=== PATIENT | male | born 1975 | race Caucasian/White ===

== ENCOUNTER 2021-08-17 10:51 | Outpatient (CLI) | payer BC, SELFPAY ==
--- NOTE | 2021-08-17 10:58 | XR_ITS ---
WS: [id number] XR foot RT min 3V* [id number] REASON FOR EXAM: RIGHT FOOT PAIN FINDINGS: Arthropathy of the right forefoot characterized by mild joint space narrowing, mild subchondral scler osis, and small marginal osteophytes. These findings are most notable in the third and fourth toes. Mild subluxations at the MP joints of the second through the fifth toes with mild varus deformity at the fifth MP joint. No significant bone or joint abnormality in the right midfoot. Normal right subtalar joint. Small enthesophyte at the insertion of the Achilles tendon on the calcaneus. XR/XR foot RT min 3V* [id number] IMPRESSION: Mild osteoarthritis of the right forefoot as above.
== END 2021-08-17 10:52 | disposition home or self-care (01) ==
LOC: RAD 10:55
PROVIDERS: PCP Electrodiagnostic Medicine; Visit Provider Electrodiagnostic Medicine
DX: M19.071 Primary osteoarthritis, right ankle and foot (principal)
CPT/HCPCS: 73630

== ENCOUNTER → 2021-09-23 08:35 | Outpatient (BNVA) | payer BC, SELFPAY | PROVIDERS: PCP Electrodiagnostic Medicine; Referring Provider Electrodiagnostic Medicine; Visit Provider Podiatrist Foot & Ankle Surgery | DX: M79.671 Pain in right foot (principal) | CPT/HCPCS: 73630 ==

== ENCOUNTER → 2022-05-21 11:25 | Day surgery (SDC) | payer BC, SELFPAY ==
[2022-05-21 11:41] LABS: Hematocrit 55.5 % (42.0-52.0); Hemoglobin 19.4 g/dL (11.7-16.6)
[2022-05-21 12:03] VITALS: BP 151/112; PULSE 108; RESP 18; TEMP 36.5; O2SAT 95
== END ==
PROVIDERS: PCP Electrodiagnostic Medicine; Visit Provider Nurse Practitioner
DX: D75.1 Secondary polycythemia (principal)
CPT/HCPCS: 36415; 85014; 85018; 99195

== ENCOUNTER 2022-06-03 07:53 | Outpatient (CLI) | payer BC, SELFPAY ==
--- NOTE | 2022-06-03 08:18 | MR_ITS ---
WS: [id number] MRI CERVICAL SPINE NONCONTRAST TECHNIQUE: Sagittal T1, T2 and STIR imaging. Axial T2, gradient, and fiesta imaging. CLINICAL INFORMATION: ACUTE PAIN OF NECK MUSCLE COMPARISON: None. FINDINGS: Straightening of the normal cervical lordosis. Mild disc bulging C5-C6 and C6-C7. Cord signal is norm al. C2-C3: Normal. C3-C4: Mild facet arthropathy. Spinal canal and foramen are patent. C4-C5: Mild facet arthropathy. Spinal canal and foramen are patent. C5-C6: Mild disc osteophytic ridging. Moderate facet arthropathy. Mild RIGHT greater than LEFT forami nal narrowing. Spinal canal is patent. C6-C7: Mild disc osteophyte complex with endplate ridging. Mild central canal stenosis. Slight contac t of the cervical cord. Mild to moderate bilateral bony foraminal narrowing. Moderate facet arthropat hy. C7-T1: Mild osteophytic ridging. Mild LEFT and no significant RIGHT bony foraminal narrowing. Spinal canal is patent Visualized brain stem structures: Normal. Prevertebral soft tissues: Normal. MR/MR cervical spin wo con* [id number] IMPRESSION: 1. Straightening of the normal cervical lordosis. Cord signal is normal. 2. Disc osteophyte complex with endplate ridging and shallow central protrusio n C6-C7. Mild central canal stenosis with slight contact of the cervical cord. Mild to moderate bilateral bony foraminal narrowing at this level. Moderate fac et arthropathy. 3. Mild disc osteophytic ridging C5-C6 with mild RIGHT foraminal narrowing. Mo derate facet arthropathy at this level. 4. No other significant findings.
== END 2022-06-03 07:54 | disposition home or self-care (01) ==
PROVIDERS: PCP Electrodiagnostic Medicine; Visit Provider Nurse Practitioner
DX: M25.78 Osteophyte, vertebrae (principal); M48.02 Spinal stenosis, cervical region
CPT/HCPCS: 72141

== ENCOUNTER → 2022-06-22 08:37 | Day surgery (SDC) | payer BC, SELFPAY ==
[2022-06-22 09:00] VITALS: BP 152/117; PULSE 90; RESP 18; TEMP 36.5; O2SAT 90
[2022-06-22 09:00] LABS: Hematocrit 56.8 % (42.0-52.0); Hemoglobin 19.7 g/dL (11.7-16.6)
== END ==
PROVIDERS: PCP Electrodiagnostic Medicine; Visit Provider Obstetrics & Gynecology Gynecology
DX: D75.1 Secondary polycythemia (principal)
CPT/HCPCS: 36415; 85014; 85018; 99195

== ENCOUNTER 2022-09-11 08:31 | Outpatient (CLI) | payer BC, SELFPAY ==
--- NOTE | 2022-09-11 | USR_ITS ---
Arterial ultrasound of the extracerebral carotid and vertebral arteries Clinical indication: Numbness / parasthesia; Right; Additional info: C-spine spondylosis Technique: Real-time ultrasound with alexandre scale, duplex Doppler, and color flow imaging was performed to evaluate the extracerebral carotid and vertebral arteries. No prior vascular imaging studies are available for correlation at the time of dictation. Findings: No significant plaque formation is identified in the carotid arteries Antegrade flow in the right vertebral artery with limited evaluation of left vertebral arterial flow. The peak systolic velocity measurements within the right and left internal carotid arteries are 71 and eighty-one cm per second respectively. The right systolic velocity ratio is 0.74, while the left systolic velocity ratio is 0.74. These values are well within normal limits. US/CV carotid duplex BI* [id number] Impression: 1. Unremarkable sonographic evaluation of the carotid arteries. 2. Antegrade flow in the right vertebral artery with limited evaluation of left vertebral arterial flow.
== END 2022-09-11 08:32 | disposition home or self-care (01) ==
PROVIDERS: PCP Electrodiagnostic Medicine; Visit Provider Neurological Surgery
DX: M47.22 Other spondylosis with radiculopathy, cervical region (principal); R20.2 Paresthesia of skin
CPT/HCPCS: 93880

== ENCOUNTER 2022-10-19 16:09 | Outpatient (CLI) | payer BC, SELFPAY ==
--- NOTE | 2022-10-19 16:23 | CT_ITS ---
WS: [id number] CTA HEAD AND NECK TECHNIQUE: Contrast enhanced CTA of the head and neck with coronal and sagittal reformatted images an d maximum intensity projection (MIP) images. NASCET criteria utilized. CLINICAL INFORMATION: PARESTHESIA OF SKIN, HYPERTENSION COMPARISON: Ultrasound September 11, 2022 DLP: 1467.[address] scans at [facility] use at least one of these dose optimization techniques: automated e xposure control; mA and/or kV adjustment per patient size (includes targeted exams where dose is matc hed to clinical indication); or iterative reconstruction. FINDINGS: No evidence of intracranial hemorrhage or mass effect. Ventricular system and basal cistern s are patent. Chronic lacunar infarcts LEFT cerebellum. Normal alexandre-white differentiation. Mastoid air cells are well aerated. Retention cyst RIGHT maxillary sinus measuring 2.1 CM. Normal pos terior nasopharynx. Normal parapharyngeal fat. Lung apices are well aerated. RIGHT thyroid nodule lawson suring 10 mm. Normal parotid glands. Submandibular glands are normal. No evidence of supraglottic or glottic mass. Normal posterior nasopharynx. Normal parapharyngeal fat. RIGHT: RIGHT common carotid artery is patent. No significant RIGHT ICA stenosis. RIGHT ICA is patent to the skull base. LEFT: LEFT common carotid artery is patent. No significant LEFT ICA stenosis. LEFT ICA is patent to the skull base. INTRACRANIAL CTA: RIGHT dominant vertebral artery. Basilar artery is patent. Smaller but patent LEFT vertebral artery. LEFT vertebral artery mainly ends in PICA. Proximal basilar artery is patent. Normal vascularity to the LEAD [employer]EL[employer] territory bilaterally. Both ICAs are patent at the skull base. Normal vascularity to the VIPIN and MCA territories bilaterally . No evidence of proximal flow limiting stenosis. CT/CT angio headneck* [id number] IMPRESSION: 1. No significant ICA stenosis bilaterally. Both ICAs are patent to the skull base. 2. RIGHT dominant vertebral artery. Smaller but patent LEFT vertebral artery w hich mainly ends in PICA. 3. Normal intracranial CTA. No flow-limiting stenosis. 4. Low-attenuation RIGHT thyroid nodule measures 10 mm.
[2022-10-19] MEDS: iohexol 350 mg/mL 100 mL Btl IV (17:06)
== END 2022-10-19 16:10 | disposition home or self-care (01) ==
PROVIDERS: PCP Electrodiagnostic Medicine; Visit Provider Psychiatry & Neurology Epilepsy
DX: R20.2 Paresthesia of skin (principal); I10 Essential (primary) hypertension; E04.1 Nontoxic single thyroid nodule
CPT/HCPCS: 70496; 70498; Q9967

== ENCOUNTER 2022-12-02 14:08 | Outpatient (CLI) | payer BC, SELFPAY ==
--- NOTE | 2022-12-02 | US_ITS ---
WS: [id number] THYROID ULTRASOUND HISTORY: NODULES COMPARISON: CTA neck 10/19/2022 Right lobe: 1.6 cm x 2.2 cm x 5.6 cm (w x ap x l). Volume: 10.4 cm3. Mildly enlarged thyroid lobe. Mild coarsened echotexture throughout. Hypoechoic ovoid nodule in the i nferior pole measures 10 x 11 x 6 mm. No echogenic foci. Mild peripheral increased vascularity. Left lobe: 1.4 cm x 2.1 cm x 4.4 cm (w x ap x l). Volume: 6.7 cm3. Normal size gland with mild coarse echotexture. No mass or nodules. Isthmus: 0.4 cm. US/US thyroid [id number] IMPRESSION: 1. Hypoechoic nodule lower pole RIGHT thyroid (TI-RADS 3). Follow-up recommend ation is ultrasound at 1, 3 and 5 years to document stability. 2. Mild RIGHT lobe enlargement.
== END 2022-12-02 14:09 | disposition home or self-care (01) ==
PROVIDERS: PCP Electrodiagnostic Medicine; Visit Provider Electrodiagnostic Medicine
DX: E04.1 Nontoxic single thyroid nodule (principal); E04.9 Nontoxic goiter, unspecified
CPT/HCPCS: 76536

== ENCOUNTER 2023-01-04 15:00 | Outpatient (CLI) | payer BC, SELFPAY | END 2023-01-04 15:01 | disposition home or self-care (01) | LOC: SLEEP 01-05 12:41 | PROVIDERS: PCP Electrodiagnostic Medicine; Visit Provider Electrodiagnostic Medicine | DX: G47.33 Obstructive sleep apnea (adult) (pediatric) (principal) | CPT/HCPCS: G0399 ==

== ENCOUNTER 2023-03-24 08:49 | Outpatient (CLI) | payer BC, SELFPAY ==
--- NOTE | 2023-03-24 08:57 | USCV_ITS ---
Edilson Franklin Age: 47 Gender: M : 1975 Exam Date: 03/24/2023 09:05 Ordering Phys: Lionel Green DO Technologist: Exam Location: [facility] [place]_ Indication: leg numbness RIGHT LEFT Brachial 127.00 mmHg Brachial 134.00 mmHg Pressure (mmHg) Waveform Pressure (mmHg) Waveform 147.00 CLOTH SHRINKING TESTER 153.00 128.00 DPA 135.00 1.10 Ankle/Brachial Index 1.10 1.10 Post-Exercise Ankle Brachial Index 1.10 129.00 Pre-Exercise Toe Pressure 156.00 0.96 Pre-Exercise Toe/Brachial Index 1.10 FINDINGS Resting CARY of 1.1 bilaterally Resting TBI 0.96 on the right and 1.1 on the left CONCLUSIONS Normal resting ABIs and TBIs bilaterally No evidence of any significant arterial obstruction, based on the above findings. Dr Afshan Chatman MD [facility] (Electronically Signed) Final Date: 25 Mar 2023 17:02 S
== END 2023-03-24 08:50 | disposition home or self-care (01) ==
LOC: RAD 08:52
PROVIDERS: PCP Electrodiagnostic Medicine; Visit Provider Electrodiagnostic Medicine
DX: I73.9 Peripheral vascular disease, unspecified (principal)
CPT/HCPCS: 93922

== ENCOUNTER 2023-04-29 08:10 | Outpatient (CLI) | payer BC, SELFPAY ==
--- NOTE | 2023-04-29 08:27 | MR_ITS ---
WS: [id number] MRI LUMBAR SPINE NONCONTRAST HISTORY: RADICULITIS DUE TO DISPLACEMENT OF LUMBAR INTERVERTEBRAL DIS COMPARISON: None available. TECHNIQUE: Sagittal and axial multisequence imaging is submitted. 5 nonrib-bearing vertebral bodies are identified. The S1 vertebral body is lumbarized. This will be t he numbering pattern utilized. Normal lumbar alignment with no compression fractures or marrow edema. Mild disc desiccation at L4-5 and L5-S1. No fractures or marrow edema. Conus terminates normally at L1-2 disc level. L1-L2: Normal. L2-L3: Normal. L3-L4: Mild annular disc bulging and facet arthropathy. There is very mild encroachment upon the suba rticular recesses and the traversing L4 nerve roots. Mild central and bilateral subarticular recess s tenosis. L4-L5: Mild diffuse annular disc bulging with a central disc protrusion and annular fissure. Mild dis c encroachment into the subarticular recesses. Mild osteophytic ridging. There is moderate disc osteo phyte complex extending into the RIGHT subarticular recess. More significant encroachment upon the tr aversing L5 nerve root. Mild central, bilateral subarticular recess and foraminal narrowing. Moderate bilateral facet arthritis. L5-S1: Annular disc bulge with a central disc protrusion and annular fissure. Disc encroachment into the subarticular recesses. Moderate central and bilateral subarticular recess stenosis. There is cont act on the S1 nerve roots bilaterally. No significant foraminal stenosis. More advanced LEFT facet ar thritis. S1-S2: Small rudimentary disc. No stenosis. Paravertebral soft tissues are normal. MR/MR lumbar spine wo con* [id number] IMPRESSION: 1. S1 is lumbarized. 2. L5-S1: Central disc protrusion. Moderate central and bilateral subarticular recess stenosis. There is disc encroachment upon the S1 nerve roots bilaterall y. 3. L4-5: Mild central, bilateral subarticular recess and foraminal stenosis. T here is a more focal disc osteophyte complex extending into the RIGHT subarticu lar recess. Most significant encroachment upon the traversing RIGHT L5 nerve ro ot. 4. Facet joint arthritis most significant at L4-5 and L5-S1. 5. Mild central and bilateral subarticular recess stenosis at L3-4.
--- NOTE | 2023-04-29 08:45 | MR_ITS ---
WS: [id number] MRI BRAIN WITH AND WITHOUT CONTRAST HISTORY: headache, history of meningioma COMPARISON: 10/05/2022 TECHNIQUE: Multiplanar imaging performed through the brain with MultiHance 20 ml's IV. No acute infarcts are seen. Price-white matter differentiation is well preserved. No susceptibility artifacts or prior lacunar infarcts. Ventricles and extra-axial spaces are normal. Clivus and pituitary gland are normal. Visualized posterior fossa and brainstem are also normal. Intermediate enhancing extra-axial mass is noted along the RIGHT clivus and petrous ridge measuring 1 2 x 6 x 13 mm. This mass was also present on the study from 10/05/2022 without increase in size. No s ignificant mass effect upon the brain. There is a small dural tail. This is most significant with a m eningioma. Dural venous sinuses are normal. Paranasal sinuses: Mucoperiosteal thickening and a small mucous retention cyst in the RIGHT maxillary sinus. No air-fluid levels. Mastoid air cells: Normal. Calvarium and scalp: Normal. MR/MR head wo/w con [id number] IMPRESSION: 1. Stable extra-axial mass along the RIGHT petrous ridge/clivus. Most consiste nt with a meningioma measuring 12 x 6 x 13 mm. Very similar in size and appeara nce as compared to 10/05/2022. 2. No prior infarct or hemorrhage. 3. Normal size ventricles. 4. No atrophy.
[2023-04-29] MEDS: gadobenate dimeglumine 20 mL vial IV (11:39)
== END 2023-04-29 08:11 | disposition home or self-care (01) ==
PROVIDERS: PCP Electrodiagnostic Medicine; Visit Provider Specialist
DX: M51.16 Intervertebral disc disorders with radiculopathy, lumbar region (principal); D32.0 Benign neoplasm of cerebral meninges; M47.27 Other spondylosis with radiculopathy, lumbosacral region; M48.07 Spinal stenosis, lumbosacral region; M25.78 Osteophyte, vertebrae
CPT/HCPCS: 70553; 72148; A9577

== ENCOUNTER → 2023-06-14 14:08 | Outpatient (BNVA) | payer BC, SELFPAY | PROVIDERS: PCP Electrodiagnostic Medicine; Visit Provider Orthopaedic Surgery | DX: M48.062 Spinal stenosis, lumbar region with neurogenic claudication (principal) | CPT/HCPCS: 72110 ==

== ENCOUNTER 2023-07-29 08:36 | Day surgery (SDC) | payer BC, SELFPAY ==
[2023-07-13 13:18] LABS: Add Urine Microscopic? NO; Charge for UA Resulting for Rev
[2023-07-13 13:23] LABS: Bilirubin Urine Neg (Negative); Blood Urine Neg (Negative); Glucose Urine UA Norm (Normal); Ketones Urine Negative (Negative); Leukocyte Esterase Urine Negative (Negative); Nitrate Urine Negative (Negative); Protein Urine Neg (Negative); Specific Gravity, Urine 1.005 (1.005-1.030); Urine Appearance Clear (CLEAR); Urine Color Yellow (Yellow); Urobilinogen Urine 1 mg/dL (Negative); pH Urine 7 (5-7)
[2023-07-13 13:23] LABS: Basophils % 0.6 %; Eosinophils # 0.1 10^3/uL (0.0-0.8); Eosinophils % 1.2 %; Hematocrit 50.9 % (37-53); Lymphocytes # 2.4 10^3/uL (0.8-4.8); Lymphocytes % 36.6 %; Mean Corpuscular HGB Conc 35.2 g/dL (30-55); Mean Corpuscular Hemoglobin 32.7 pg (27-33); Mean Corpuscular Volume 92.9 fl (82-101); Mean Platelet Volume 9.6 fL (7.4-10.4); Monocytes # 0.5 10^3/uL (0.2-0.9); Monocytes % 8.1 %; Neutrophils # 3.44 10^3/uL (1.8-7.7); Neutrophils % 53.3 %; Nucleated Red Blood Cells % 0 %; Platelet Count 218 10^3/cmm (157-399); Red Blood Count 5.48 10^6/uL (3.85-5.65); Red Cell Distribution Width 12.3 % (12.1-15.1); White Blood Count 6.45 10^3/uL (3.29-11.43)
[2023-07-13 13:49] LABS: Alanine Aminotransferase 75 U/L (0-41); Albumin Level 4.9 g/dL (3.5-5.2); Alkaline Phosphatase 48 U/L (40-130); Anion Gap 11.3 (5-19); Aspartate Amino Transferase 32 U/L (0-40); Blood Urea Nitrogen 17 mg/dL (6-20); Calcium 9.3 mg/dL (8.5-10.5); Carbon Dioxide 30 mmol/L (22-29); Chloride 103 mmol/L (98-107); Globulin 1.9 g/dL (1.3-4.6); Glomerular Filtration Rate 89.7 mL/min (90-130); Glucose 88 mg/dL (65-115); Osmolality Calculated 291 mOsm/kg (285-295); Potassium 4.3 mmol/L (3.5-5.1); Sodium 140 mmol/L (136-145); Total Bilirubin 0.5 mg/dL (0.15-1.2); Total Protein 6.8 g/dL (6.6-8.7)
[2023-07-28 11:47] VITALS: BMI 33.7
[2023-07-29] VITALS (9 sets, daily range): BP systolic 123–144; BP diastolic 76–92; PULSE 68–83; RESP 14–18; TEMP 36.2–36.8; O2SAT 94–98
--- NOTE | 2023-07-29 | XR_ITS ---
WS: [id number] XR lumbar spine 1V [id number] REASON FOR EXAM: l5-S1 decompression. or pic FINDINGS: Surgical device overlying the L5 vertebral body just right of midline. IMPRESSION: Intraoperative lumbar localization as above.
--- NOTE | 2023-07-29 08:46 | W.PM.OPSFHP ---
Same Day Surgery H&P Indication for Procedure/HPI DATE OF PROCEDURE: July 29, 2023 CHIEF COMPLAINT/INDICATIONFOR SURGICAL PROCEDURE: back pain PREOP DIAGNOSIS: Lumbar Stenosis with neurogenic claudication PLANNED PROCEDURE: Operation Date: 07/29/23 09:55 Proposed Procedures p 59110: right L5/6 mm decompression, M48.062: Lumbar stenosis with neurogenic claudication M54.9: back pain(Right) - Chacho Abad, Medications/Allergies* Home Medications Medication Instructions Recorded Confirmed Type pantoprazole 40 mg granules 40 mg PO DAILY 09/23/21 07/28/23 History delayed-release for susp in packet Tumeric 2,000 mg PO DAILY 01/31/23 07/28/23 History gabapentin 300 mg capsule 300 mg PO DAILY 01/31/23 07/28/23 History hydrochlorothiazide 12.5 mg capsule 12.5 mg PO DAILY 01/31/23 07/28/23 History testosterone cypionate 200 mg/mL 100 mg SUBCUT 01/31/23 06/14/23 History intramuscular oil valsartan 320 mg tablet 320 mg PO DAILY 06/14/23 07/28/23 History Allergies/Adverse Reactions Allergy/AdvReac Type Severity Reaction Status Date / Time amoxicillin Allergy Mild Rash Verified 07/28/23 11:44 Pertinent History/Comorbid Conditions* Social History Smoking and tobacco status: never smoked Second hand smoke exposure: No Smoking risk assessment/counseling performed?: No Alcohol intake: current Alcohol intake frequency: few times a week Alcohol type: beer Desire information about alcohol rehabilitation?: No Counseling given: No Substance/Drug Use: never Desire information about substance/drug rehabilitation?: No Counseling given: No Pertinent Exam Findings alert and oriented x 3 Recommendations Surgery/Procedure today Coding Level of Care Code Acute Code for Chg Fwd Diagnoses
[2023-07-29] MEDS: sodium chloride 0.9% 1,000 ML 30 ML IV (09:00)
[2023-07-29] MEDS: vancomycin 1,000 MG in sodium chloride 0.9% 250 ML 250 MG IV (09:42)
--- NOTE | 2023-07-29 09:55 | ANES.PREANE2 ---
Pre-Anesthetic Assessment Height/Weight: Height 1.91 m Weight 122.47 kg Temp Pulse Resp BP Pulse Ox O2 Del Method 98.2 F 80 18 144/92 96 Room Air 07/29/23 08:51 07/29/23 08:51 07/29/23 08:51 07/29/23 08:51 07/29/23 08:51 07/29/23 08:52 Preop Diagnosis: Lumbar Stenosis with neurogenic claudication Operation Date: 07/29/23 09:55 Proposed Procedures p 17427: right L5/6 mm decompression, M48.062: Lumbar stenosis with neurogenic claudication M54.9: back pain(Right) - Chacho Abad, DO Was Beta Malinda taken within 24 hours: N/A Was Clonidine taken within 24 hours: N/A Last intake: Intake Last Liquid Date 07/28/23 Last Liquid Time 22:00 Last Solid Date 07/28/23 Last Solid Time 19:00 Social No tobacco Exam alert, oriented x 3, clear to auscultation bilaterally and regular rate & rhythm Airway Submandibular: within normal limits Cervical ROM: within normal limits Mallampati: Class II History/ROS No significant history except as noted and No significant complaints CV/HEM Hypertension GI Gastroesophageal Reflux Disease Anesthetic Plan ASA status: 2 Anesthesia: General Risk of > 500 ml blood loss (7ml/kg in children): No Medications/Allergies Home Medications Medication Instructions Recorded Confirmed Last Taken Type pantoprazole 40 mg granules 40 mg PO DAILY 09/23/21 07/28/23 07/28/23 History delayed-release for susp in packet Tumeric 2,000 mg PO DAILY 01/31/23 07/28/23 07/28/23 History gabapentin 300 mg capsule 300 mg PO DAILY 01/31/23 07/28/23 07/28/23 History hydrochlorothiazide 12.5 mg capsule 12.5 mg PO DAILY 01/31/23 07/28/23 07/28/23 History testosterone cypionate 200 mg/mL 100 mg SUBCUT 01/31/23 06/14/23 Unknown History intramuscular oil valsartan 320 mg tablet 320 mg PO DAILY 06/14/23 07/28/23 07/28/23 History Allergies Allergy/AdvReac Type Severity Reaction Status Date / Time amoxicillin Allergy Mild Rash Verified 07/28/23 11:44 PFS Anesthesia Social History Smoking and tobacco status: never smoked Second hand smoke exposure: No Smoking risk assessment/counseling performed?: No Alcohol intake: current Alcohol intake frequency: few times a week Alcohol type: beer Desire information about alcohol rehabilitation?: No Counseling given: No Substance/Drug Use: never Desire information about substance/drug rehabilitation?: No Counseling given: No Data Anesthesia 07/13/23 13:13 07/13/23 13:13 Cardiac Studies: No Data to Display
[2023-07-29] MEDS: lidocaine-epi 1% 20 mL INJ INJECTION (10:17)
--- NOTE | 2023-07-29 10:55 | PM.OP ---
Operative Report Date of procedure: July 29, 2023 Pre-op diagnosis: Lumbar stenosis with neurogenic claudication Post-op diagnosis: same Procedure done: L4-5 laminectomy with partial facetectomy Surgeon: Chacho Abad DO Hydroelectric Plant Electrician: Mazin Otero Hydroelectric Plant Electrician: The surgical services tech, Mazin Otero, DAMIEN was needed for his expertise under the microscope. He was important and necessary throughout the procedure to complete in a safe and timely manner. He assisted with patient positioning prepping and draping tissue retraction suctioning of the operative field protection of the dural sac and tissue closure Estimated blood loss (mL): 15 Procedure: L4-5 laminectomy with partial facetectomy Patient is brought to the operative suite. After undergoing anesthesia they are placed in the prone position. All areas of impingement are well padded. Patient is then prepped and draped in the normal sterile fashion. A skin incision is made over the L4-5 level. This is confirmed under c-arm guidance. A series of dilators are passed and the tubular retractor is docked on the L4 lamina. A bovie is used to clear the soft tissue off the lamina and the L 4/5 facet joint. A high speed gila is then used to perform the laminectomy and take down the medial aspect of the L 4/5 facet joint. A kerrison rongeure was then used to take down the remaining lamina and smooth the edge of the laminectomy up to the point where the ligamentum flavum attaches. Attention was then brought to the medial aspect of the facet joint. The remaining medial aspect of the superior and inferior aspect of the facet joint were taken down with the kerrison from the pedicle of L4 to L 5. The facet joint had significant hypertrophy. Attention was then brought to the Ligamentum Flavum. The ligament was taken down from the lamina of L4 to L5 and out medially to the remaining facet joint. The ligament was thick. The dura was then exposed. The dura was in good repair. The L4 nerve was then traced with a curette out the L4/5 foramen and found to be adequately decompressed. The L5 nerve was traced with a curette around the L5 pedicle. The lateral recess was opened with a kerrison helping to further decompress the L5 nerve. Wound is then irrigated copiously with saline and surgiflo is used to stop any bleeding. The tubular retractor is removed and the wound is closed with vicryl and monocryl suture. Glue is then used to protect the wound. A sterile dressing is then placed. Patient was then placed in the supine position and transferred to the PACU in stable condition.
[2023-07-29] MEDS: oxyCODONE-APAP 5-325 mg Tablet 1 TAB PO (11:54)
--- NOTE | 2023-07-29 13:47 | ANE.PACU2 ---
Inpatient post-anesthesia follow up: Airway intact: Yes Vital signs: Temperature 97.2 F Pulse Rate 68 Respiratory Rate 17 Blood Pressure 135/88 Pulse Oximetry 94 Oxygen Delivery Me thod Room Air Oxygen Flow Rate 6 Fraction of Inspir ed Oxygen Hydration adequate: Yes Nausea and vomiting: No Pain level: 3 Mental status: Baseline
== END 2023-07-29 12:09 | disposition home or self-care (01) ==
PROVIDERS: PCP Electrodiagnostic Medicine; Visit Provider Orthopaedic Surgery
PROC: (CPT 63005; principal; 2023-07-29 09:55)
DX: M48.062 Spinal stenosis, lumbar region with neurogenic claudication (principal); I10 Essential (primary) hypertension; K21.9 Gastro-esophageal reflux disease without esophagitis
CPT/HCPCS: 63047; 36415; 72020; 76000; 80053; 81003; 85025; J0131; J1100; J1885; J2250; J2405; J2704; J2710; J3010; J3370; J3490; J7030; J7050

== ENCOUNTER → 2023-09-15 09:40 | Outpatient (BNVA) | payer BC, SELFPAY | PROVIDERS: PCP Electrodiagnostic Medicine; Visit Provider Podiatrist Foot & Ankle Surgery | DX: M76.61 Achilles tendinitis, right leg; M76.62 Achilles tendinitis, left leg | CPT/HCPCS: 73610 ==

== ENCOUNTER 2023-10-17 07:19 | Outpatient (RCR) | payer BC, SELFPAY | END 2023-11-06 23:59 | disposition home or self-care (01) | LOC: SPT 07:19 | PROVIDERS: PCP Electrodiagnostic Medicine; Visit Provider Podiatrist Foot & Ankle Surgery | DX: M76.61 Achilles tendinitis, right leg (principal) | CPT/HCPCS: 97033; 97110; 97140; 97161 ==

== ENCOUNTER 2023-10-28 12:44 | Outpatient (CLI) | payer BC, SELFPAY ==
--- NOTE | 2023-10-28 16:45 | MR_ITS ---
WS: [id number] MRI LUMBAR SPINE NONCONTRAST HISTORY: lumbar pain, recent lumbar spine surgery. COMPARISON: 04/29/2023 TECHNIQUE: Sagittal and axial multisequence imaging is submitted. Same numbering pattern will be utilized. S1 is lumbarized. Posterior alignment is normal. Mild disc space narrowing and desiccation at L4-5 and L5-S1. No fractures or marrow edema. Postsurgic al changes are noted at the L5-S1 level. Conus terminates normally at L1-2 disc level. L1-L2: Normal. L2-L3: Normal. L3-L4: Mild annular disc bulging with ligamentum flavum and facet arthritis. Mild encroachment upon t he traversing L4 nerve roots. No high-grade stenosis. L4-L5: Mild annular disc bulging with a central disc protrusion. Ligamentum flavum and facet arthriti s. Small amount of fluid in the facet joints. There is disc encroaching and contacting the traversing L5 nerve roots. Mild central and bilateral subarticular recess and foraminal stenosis. Very similar to the prior study. Slightly greater RIGHT foraminal stenosis. L5-S1: Mild annular disc bulging with a central disc protrusion and annular fissure. LEFT hemilaminec kathryn defect. Continued mild central stenosis and facet arthritis. S1-S2: Small rudimentary disc. No stenosis. IMPRESSION: 1. Since the prior examination status post LEFT hemilaminectomy defect at L5-S1. There is a continued central disc protrusion at L5-S1 with mild encroachment upon the subarticular recesses and central c anal. 2. L4-5: Mild central, bilateral subarticular recess and foraminal stenosis. Similar to the prior elisabeth dy.
== END 2023-10-28 12:45 | disposition home or self-care (01) ==
LOC: RAD 12:44
PROVIDERS: PCP Electrodiagnostic Medicine; Visit Provider Physician Assistant
DX: Z98.890 Other specified postprocedural states (principal); M48.061 Spinal stenosis, lumbar region without neurogenic claudication
CPT/HCPCS: 72148

== ENCOUNTER 2023-11-07 06:00 | Outpatient (RCR) | payer BC, SELFPAY | END 2023-11-17 23:59 | disposition home or self-care (01) | LOC: SPT 06:00 | PROVIDERS: PCP Electrodiagnostic Medicine; Visit Provider Podiatrist Foot & Ankle Surgery | DX: M76.61 Achilles tendinitis, right leg (principal) | CPT/HCPCS: 97033; 97110; 97140 ==

== ENCOUNTER 2023-11-23 11:50 | Outpatient (CLI) | payer BC, SELFPAY ==
--- NOTE | 2023-11-23 12:01 | USCV_ITS ---
Franklin Waggoner Age: 48 Gender: M : 1975 Exam Date: 11/23/2023 12:21 Ordering Phys: Lionel Green DO Technologist: EDDIE Exam Location: [facility] [place]_ Indication: CHEST PAIN BP: 130 / 75 HR: 65 Rhythm: Sinus Technical Quality: Adequate MEASUREMENTS (Male / Female) Normal Values 2D ECHO LVOT Diameter 2.1 cm LV Ejection Fraction MOD 2C 54.7 % LV Ejection Fraction 2C AL 58.2 % LA Diameter 3.8 cm LA Width 3.6 cm LA Height 5.6 cm RA Width 3.6 cm RA Height 5.1 cm Aorta at Sinotubular Diameter 2.5 cm IVC Diameter 2.0 cm M-MODE Aortic Annulus Diameter 3.1 cm LA Ao Ratio MM 1.3 MV E Point Septal Separation 0.4 cm DOPPLER AV Peak Velocity 150.0 cm/s LVOT Peak Velocity 125.0 cm/s AV Area Cont Eq vti 3.5 cm squared AV Area Cont Eq pk 2.9 cm squared MV Peak Velocity 78.0 cm/s MV Area PHT 4.0 cm squared Mitral E to A Ratio 1.2 MV E' Velocity 41.5 cm/s Mitral E to MV E' Ratio 7.4 Mitral E to LV E' Lateral Ratio 6.4 Mitral E to LV E' Septal Ratio 8.8 TR Peak Velocity 220.3 cm/s TR Peak Gradient 19.4 mmHg TR Mean Velocity 190.5 cm/s TR Mean Gradient 15.0 mmHg TR Velocity Time Integral 65.9 cm TV Peak E Velocity 38.0 cm/s Right Atrial Pressure 3.0 mmHg Pulmonary Artery Systolic Pressu 22.4 mmHg PV Peak Velocity 101.0 cm/s RV Acceleration Time 0.1 s RV Ejection Time 0.3 s RV AcT/ET 0.5 FINDINGS Left Ventricle Left ventricle is normal in size. LV systolic function is normal with EF of 55 to 60%. No regional wall motion abnormalities are seen. Right Ventricle Normal in size and function Right Atrium Normal in size Left Atrium Normal in size Mitral Valve Structurally normal mitral valve. Mild mitral regurgitation Aortic Valve Structurally normal aortic valve. No comparison studies are available. Tricuspid Valve Mild tricuspid regurgitation. Pulmonary artery systolic pressure is normal. Pulmonic Valve Not well-visualized Pericardium Trace pericardial effusion. Aorta Normal in size IVC Appears to be normal CONCLUSIONS LV systolic function is normal with EF of 55 to 60%. Mild mitral regurgitation Mild tricuspid regurgitation Trace pericardial effusion. No comparison studies are available. Anirudh Bravo MD (Electronically Signed) Final Date: 09 December 2023 14:53 S
== END 2023-11-23 11:51 | disposition home or self-care (01) ==
LOC: RAD 11:54
PROVIDERS: PCP Electrodiagnostic Medicine; Visit Provider Electrodiagnostic Medicine
DX: R07.9 Chest pain, unspecified (principal); I08.1 Rheumatic disorders of both mitral and tricuspid valves
CPT/HCPCS: 93306

== ENCOUNTER 2025-01-15 05:48 | Outpatient (CLI) | payer SELFPAY ==
[2025-01-15 07:29] LABS: HF Add Manual Diff No
[2025-01-15 07:49] LABS: Basophils % 0.6 %; Eosinophils # 0.1 10^3/uL (0.0-0.8); Eosinophils % 1.4 %; Hematocrit 47.3 % (37-53); Lymphocytes # 2.8 10^3/uL (0.8-4.8); Lymphocytes % 44.3 %; Mean Corpuscular HGB Conc 33.6 g/dL (30-55); Mean Corpuscular Hemoglobin 30.9 pg (27-33); Mean Platelet Volume 10.1 fL (7.4-10.4); Monocytes # 0.6 10^3/uL (0.2-0.9); Monocytes % 8.9 %; Neutrophils # 2.79 10^3/uL (1.8-7.7); Neutrophils % 44.5 %; Nucleated Red Blood Cells % 0 %; Platelet Count 208 10^3/cmm (157-399); Red Blood Count 5.14 10^6/uL (3.85-5.65); Red Cell Distribution Width 13.1 % (12.1-15.1); White Blood Count 6.28 10^3/uL (3.29-11.43)
[2025-01-15 08:12] LABS: Estmated Average Glucose 103; Hemoglobin A1C 5.2 % (4.0-6.0)
[2025-01-15 08:33] LABS: 25 Hydroxy Vitamin D 46 ng/mL (30-100); Alanine Aminotransferase 34 U/L (0-41); Albumin Level 4.3 g/dL (3.5-5.2); Alkaline Phosphatase 60 U/L (40-130); Blood Urea Nitrogen 20 mg/dL (6-20); Carbon Dioxide 24 mmol/L (22-29); Chloride 106 mmol/L (98-107); Chol HDL Ratio 4.55 mg/dL (1.0-5.00); Cholesterol 191 mg/dL (0-200); Globulin 1.9 g/dL (1.3-4.6); Glucose 98 mg/dL (65-115); HDL Cholesterol 42 mg/dL (60-100); LDL Cholesterol Calculated 123 mg/dL (50-129); LDL HDL Ratio 2.93 RATIO (0.00-3.22); Osmolality Calculated 295 mOsm/kg (285-295); Prostate Specific Antigen Scr 2.02 ng/mL (0-4); Sodium 141 mmol/L (136-145); Thyroid Stimulating Hormone 3.07 uIU/mL (0.27-4.20); Total Bilirubin 0.5 mg/dL (0.15-1.2); Total Protein 6.2 g/dL (6.6-8.7); Triglycerides 132 mg/dL (0-150)
[2025-01-15 08:41] LABS: Aspartate Amino Transferase 25 U/L (0-40)
== END 2025-01-15 05:49 | disposition home or self-care (01) ==
LOC: LAB 05:49
PROVIDERS: PCP Electrodiagnostic Medicine; Visit Provider Dermatology
DX: Z01.89 Encounter for other specified special examinations (principal)